=== PATIENT | male | born 2005 | race Caucasian/White ===

== ENCOUNTER 2025-02-21 18:48 | Emergency (ER) | payer MEDICAID ==
[~2025-02-21] VITALS: Ht 162.6 cm; Wt 64.0 kg
[2025-02-21 18:54] VITALS: O2SAT 100
[2025-02-21 19:54] LABS: BASOPHILS % 0.2 % (0.0-2.0); EOSINOPHILS % 0.3 % (0.0-5.0); HEMATOCRIT. 51.1 % (42.0-52.0); HEMOGLOBIN. 17.9 g/dL (14.0-18.0); LYMPHOCYTES % 9.1 % (20.0-50.0); MEAN PLATELET VOLUME 8.0 fl (7.4-10.4); MONOCYTES % 5.4 % (2.0-8.0); NEUTROPHILS % 85.0 % (40.0-76.0); PLATELET 325 x1000/uL (130-400); RED BLOOD CELL COUNT 5.64 mill/uL (4.7-6.1); RED CELL DISTRIBUTION WIDTH 12.3 % (11.6-14.6)
[2025-02-21 20:07] LABS: CREATININE 1.0 mg/dL (0.6-1.3)
[2025-02-21 20:08] LABS: UREA NITROGEN BLOOD 10 mg/dL (9-23)
[2025-02-21 20:09] LABS: *AMPHETAMINES SCREEN URINE NEGATIVE (NEGATIVE); *BARBITURATES SCREEN URINE NEGATIVE (NEGATIVE); *BENZODIAZEPINES SCREEN URINE NEGATIVE (NEGATIVE); *COCAINE SCREEN URINE NEGATIVE (NEGATIVE); ASPARTATE AMINOTRANSFERASE 16 IU/L (<34); CANNABINOID URINE SCREEN PRESUMPTIVE POSITIVE (NEGATIVE); METHADONE URINE SCREEN NEGATIVE (NEGATIVE); OPIATES URINE SCREEN NEGATIVE (NEGATIVE); PHENCYCLIDINE URINE SCREEN NEGATIVE (NEGATIVE)
[2025-02-21 20:10] LABS: BILIRUBIN DIRECT 0.7 mg/dL (<=3.0); BILIRUBIN TOTAL 2.3 mg/dL (0.1-1.0); ECSTASY MDMA SCREEN URINE NEGATIVE (NEGATIVE); PROTEIN TOTAL 8.5 g/dL (6.0-8.3)
[2025-02-22 07:06] VITALS: BP 153/98; PULSE 84; RESP 18; TEMP 36.7; O2SAT 100
== END 2025-02-22 07:20 ==
LOC: ER 18:48
DX: T50.902A Poisoning by unspecified drugs, medicaments and biological substances, intentional self-harm, initial encounter (principal); Z20.822 Contact with and (suspected) exposure to COVID-19; X58.XXXA Exposure to other specified factors, initial encounter; Y93.89 Activity, other specified; Y92.89 Other specified places as the place of occurrence of the external cause; Y99.8 Other external cause status
CPT/HCPCS: 80076; 80305; 80048; 80307; 80329; 80320; 85025; 36415; 99285; 87426; Z7610; G0480